=== PATIENT | female | born 1985 | race Two or more races ===

== ENCOUNTER 2020-06-04 15:19 | Outpatient (CLI) | payer MEDICAID | END 2020-06-04 23:59 | disposition home or self-care (01) | LOC: RAD 15:19 | PROVIDERS: ATTEND Internal Medicine Pulmonary Disease | DX: R06.02 Shortness of breath (principal); R05 Cough | CPT/HCPCS: 71046 ==

== ENCOUNTER 2021-06-27 18:25 | Emergency (ER) | payer MEDICAID | END 2021-06-27 23:38 | disposition left against medical advice (07) | LOC: ER 18:26 | DX: U07.1 COVID-19 (principal); Z53.21 Procedure and treatment not carried out due to patient leaving prior to being seen by health care provider ==

== ENCOUNTER 2022-11-29 16:24 | Emergency (ER) | payer MEDICAID ==
[~2022-11-29] VITALS: Ht 160 cm; Wt 91.0 kg
[2022-11-29 16:31] VITALS: BP 140/67
[2022-11-29] MEDS ORDERED: ALBU8HFA PO (19:40)
== END 2022-11-29 20:02 | disposition home or self-care (01) ==
LOC: ER 16:25
DX: U07.1 COVID-19 (principal); R50.9 Fever, unspecified; R53.81 Other malaise; R11.0 Nausea; J45.909 Unspecified asthma, uncomplicated; Z56.0 Unemployment, unspecified
CPT/HCPCS: 71045; 87811; 99284